=== PATIENT | female | born 1960 | race African-American/Black ===

== ENCOUNTER 2016-11-28 11:21 | Day surgery (SDC) | payer BC ==
[~2016-11-28 11:21] MED LIST: DIPHENHYDRAMINE HCL 50 MG/ML VIAL ONE; EPINEPHRINE INJ 1 MG/10 ML DISP.SYRIN ONE; FLUMAZENIL INJ 0.5 MG/5 ML VIAL ONE; GLUCAGON,HUMAN RECOMB 1 MG INJ ONE; NALOXONE HCL INJ/PF 0.4 MG/1 ML SDV ONE; ONDANSETRON HCL INJ/PF 4 MG/2 ML SDV ONE
[2016-11-28] MEDS: MIDAZOLAM 2 MG/2 ML INJ ONE ×3 (12:17→12:28)
[2016-11-28] MEDS: FENTANYL CITRATE INJ/PF 100 MCG/2 ML AMPUL ONE ×2 (12:19→12:26)
--- NOTE | 2016-11-28 12:59 | Operative Report ---
Operative Report DATE OF SURGERY: 11/28/16 Operative Report: The risks, benefits and alternatives of the procedure including risks of bleeding, perforation requiring surgery are explained to the patient in detail and informed consent was obtained. Patient is taken back to the endoscopy suite and placed in the left, lateral decubital position. Timeout was called and conscious sedation medications are provided. A rectal examination is done which did not reveal any masses, tears or fissures. An Olympus scope was inserted patient's rectum. It is carefully guided all the way to the cecum. The cecum was identified by the usual anatomical landmarks including the valve as well as the appendiceal orifice. Photodocumentation was obtained. The prep was good. The scope was then sequentially pulled back via the various segments of the colon including the ascending colon, hepatic flexure , transverse colon, splenic flexure, descending colon confined to the rectosigmoid portions of the colon. Retroflexion maneuver was performed. PREOPERATIVE DIAGNOSIS: Colorectal cancer screening POSTOPERATIVE DIAGNOSIS: Diminutive rectal polyp status post biopsy OPERATION: Colonoscopy with biopsy SURGEON: JYOTI ABBOTT ANESTHESIA: Moderate Sedation - 6 mg of Versed, 100 mcg of fentanyl. Conscious sedation monitoring time 30 minutes. TISSUE REMOVED OR ALTERED: As noted above. COMPLICATIONS: None. ESTIMATED BLOOD LOSS: None. INTRAOPERATIVE FINDINGS: As noted above. PROCEDURE: Patient tolerated procedure well. No immediate postprocedure complications are noted. Patient discharged in good condition. Discharge date 11/28/2016. Discharge diet: Regular. Discharge activity: Regular. 2-3 week follow-up to discuss findings. 5 year surveillance colonoscopy. Patient is instructed to call the office or proceed to the emergency room should there be any further problems or questions.
[2016-11-28 13:39] VITALS: BP 129/78
== END 2016-11-28 13:45 | disposition home or self-care (01) ==
LOC: END 11:21
PROVIDERS: ATTEND Internal Medicine Gastroenterology
PROC: 0DBP8ZX Excision of Rectum, Via Natural or Artificial Opening Endoscopic, Diagnostic (ICD-10-PCS; principal; 2016-11-28 12:00)
DX: Z12.11 Encounter for screening for malignant neoplasm of colon (principal); K62.1 Rectal polyp; K21.9 Gastro-esophageal reflux disease without esophagitis; I10 Essential (primary) hypertension; E11.9 Type 2 diabetes mellitus without complications; M19.90 Unspecified osteoarthritis, unspecified site; Z79.899 Other long term (current) drug therapy; Z88.6 Allergy status to analgesic agent; Z79.84 Long term (current) use of oral hypoglycemic drugs
CPT/HCPCS: 45380; 82962; 88305 ×2; J2250; J3010; J0171; J1200; J1610; J2310; J2405; J3490

== ENCOUNTER → 2016-12-01 | Outpatient (CLI) | payer BC ==
--- NOTE | 2016-12-01 18:23 | WOMENS IMAGING REPORT ---
EXAM DESCRIPTION: 3D SCREENING MAMMO BILAT COMPLETED DATE/TIME: 12/01/2016 9:50 am REASON FOR STUDY: SCREENING MAMMO Z12.31 ENCNTR SCREEN MAMMOGRAM FOR MALIGNANT NEOPLASM OF MARIANO COMPARISON: Multiple since 2009 TECHNIQUE: Standard craniocaudal and mediolateral oblique views of each breast recorded using digita l acquisition and breast tomosynthesis. LIMITATIONS: None. FINDINGS: No masses, calcifications or architectural distortion. No areas of suspicion. Read with the assistance of CAD. .[facility] - R2 Cenova Version 1.3 .[facility] - R2 Cenova Version 1.3 .[facility] - R2 Cenova Version 2.4 .[facility] - R2 Cenova Version 2.4 .[facility] - R2 Environmental [employer] Aide Version 9.2 IMPRESSION: NORMAL MAMMOGRAM. BIRADS 1. BREAST DENSITY: b. There are scattered areas of fibroglandular density. BIRAD: 1 NEGATIVE RECOMMENDATION: ROUTINE SCREENING Please continue yearly bilateral screening tomosynthesis in November 2017 COMMENT: The patient has been notified of the results by letter per MQSA requirements. Additional no tification policies are in place for contacting patient with suspicious or incomplete findings. Quality ID #225: The [employer] recommends an annual screening mammogram for women aged 40 years or over. This facility utilizes a reminder system to ensure that all patients receive reminder letters, and/or direct phone calls for appointments. This includes reminders for routine scr eening mammograms, diagnostic mammograms, or other Breast Imaging Interventions when appropriate. Th is patient will be placed in the appropriate reminder system. The [employer] (ACR) has developed recommendations for screening MRI of the breast s in certain patient populations, to be used in conjunction with mammography. Breast MRI surveillanc e may be appropriate for women with more than 20% lifetime risk of developing breast cancer as deter mined by genetic testing, significant family history of the disease, or history of mantle radiation f or Hodgkins Disease. ACR Practice Guidelines 2008. DBT Technology DBT is a type of tomographic mammography. With conventional mammography, overlapping breast tissue ma y make lesions difficult to detect, even with good compression. DBT uses an x-ray tube that rotates a round the breast, taking images at different angles. These images are then combined to create thin sl ices of the breast that the radiologist can view as a 3D reconstruction. The [employer] unit can perform full-field digital mammograms (2D imaging); or DBT (3D imaging); or both, in a combination mode that quickly performs both the mammogram and the tomosynthesis scan while the breast is still compressed. PQRS 6045F: Fluoroscopic imaging is not utilized for breast tomosynthesis. TECHNICAL DOCUMENTATION: FINDING NUMBER: (1) ASSESSMENT: (1) JOB ID: [id number] [employer]- All Rights Reserved
== END ==
LOC: WI 09:22
PROVIDERS: ATTEND Physician Assistant
DX: Z12.31 Encounter for screening mammogram for malignant neoplasm of breast (principal)
CPT/HCPCS: 77063; G0202; 77067

== ENCOUNTER 2017-06-18 12:15 | Emergency (ER) | payer BC ==
--- NOTE | 2017-06-18 13:26 | ER Document Report ---
ED Medical Screen (RME) - General Chief Complaint: Headache Stated Complaint: RIGHT SIDE PAIN Time Seen by Provider: 06/18/17 13:24 Notes: has had right sided numbness for over a month. told by pmd that was neruopathy. yesterday noticed right arm/leg swelling and face swelling today. Pt feels sob TRAVEL OUTSIDE OF THE [place]. IN LAST 30 DAYS: No - Related Data Allergies/Adverse Reactions: aspirin [Aspirin] Allergy (Severe, Verified 06/18/17 12:16) Passed out Past Medical History - Past Medical History Cardiac Medical History: Reports: Hx Hypertension Denies: Hx Coronary Artery Disease, Hx Heart Attack Pulmonary Medical History: Denies: Hx Asthma, Hx Bronchitis, Hx COPD, Hx Pneumonia Neurological Medical History: Denies: Hx Cerebrovascular Accident, Hx Seizures Endocrine Medical History: Reports: Hx Diabetes Mellitus Type 2 Musculoskeltal Medical History: Reports Hx Arthritis - B/L knees Past Surgical History: Denies: Hx Hysterectomy - Immunizations Hx Diphtheria, Pertussis, Tetanus Vaccination: Yes Physical Exam - Vital signs Vitals: Temp Pulse Resp BP Pulse Ox 97.9 F 61 16 156/87 H 98 06/18/17 12:42 06/18/17 12:42 06/18/17 12:42 06/18/17 12:42 06/18/17 12:42 Course - Vital Signs Vital signs: Temp Pulse Resp BP Pulse Ox 97.9 F 61 16 156/87 H 98 06/18/17 12:42 06/18/17 12:42 06/18/17 12:42 06/18/17 12:42 06/18/17 12:42
--- NOTE | 2017-06-18 14:08 | RADIOLOGY REPORT (SQ) ---
EXAM DESCRIPTION: CT HEAD WITHOUT COMPLETED DATE/TIME: 06/18/2017 1:54 pm REASON FOR STUDY: right sided numbness COMPARISON: None. TECHNIQUE: Axial images acquired through the brain without intravenous contrast. Images reviewed wi th bone, brain and subdural windows. Images stored on PACS. All CT scanners at this facility use dose modulation, iterative reconstruction, and/or weight based d osing when appropriate to reduce radiation dose to as low as reasonably achievable (ALARA). [facility]: Dose Right [facility]: CareDose [facility]: Dose Right [facility]: Teradose 4D [facility]: DataMentors RADIATION DOSE: CT Rad equipment meets quality standard of care and radiation dose reduction techniq ues were employed. CTDIvol: 64.6 mGy. DLP: 1163 mGy-cm. mGy. LIMITATIONS: None. FINDINGS: VENTRICLES: Normal size and contour. CEREBRUM: No masses. No hemorrhage. No midline shift. No evidence for acute infarction. Normal gra y/white matter differentiation. No areas of low density in the white matter. CEREBELLUM: No masses. No hemorrhage. No alteration of density. No evidence for acute infarction. EXTRAAXIAL SPACES: No fluid collections. No masses. ORBITS AND GLOBE: No intra- or extraconal masses. Normal contour of globe without masses. CALVARIUM: No fracture. PARANASAL SINUSES: No fluid or mucosal thickening. SOFT TISSUES: No mass or hematoma. OTHER: No other significant finding. IMPRESSION: NORMAL BRAIN CT WITHOUT CONTRAST. EVIDENCE OF ACUTE STROKE: NO. COMMENT: Quality ID # [id number]: Final reports with documentation of one or more dose reduction techniques (e.g., Automated exposure control, adjustment of the mA and/or kV according to patient size, use of iterative reconstruction technique) TECHNICAL DOCUMENTATION: JOB ID: [id number] [facility]- All Rights Reserved Reading location - IP/workstation name: [email or web address]
--- NOTE | 2017-06-18 14:16 | EKG REPORT ---
SEVERITY:- ABNORMAL ECG - SINUS RHYTHM FIRST DEGREE AV BLOCK BORDERLINE LEFT AXIS DEVIATION : Confirmed by: Hao Garcia MD 18-Jun-2017 14:15:58
[2017-06-18 14:17] LABS: ABSOLUTE BASOPHILS # (AUTO) 0.1 10^3/uL (0.0-0.2); ABSOLUTE EOSINOPHILS # (AUTO) 0.4 10^3/uL (0.0-0.6); ABSOLUTE LYMPHOCYTES (AUTO) 3.2 10^3/uL (0.5-4.7); ABSOLUTE MONOCYTES (AUTO) 0.5 10^3/uL (0.1-1.4); ABSOLUTE NEUT (AUTO) 3.1 10^3/uL (1.7-8.2); EOSINOPHILS % (AUTO) 5.2 % (0-6); HEMATOCRIT 41.8 % (36.0-47.0); HEMOGLOBIN 13.6 g/dL (12.0-15.5); LYMPHOCYTES % (AUTO) 43.9 % (13-45); MEAN CORPUSCULAR HEMOGLOBIN 28.3 pg (27.0-33.4); MEAN CORPUSCULAR HGB CONC 32.5 g/dL (32.0-36.0); MEAN CORPUSCULAR VOLUME 87 fl (80-97); MONOCYTES % (AUTO) 6.9 % (3-13); PLATELET COUNT 315 10^3/uL (150-450); RED BLOOD COUNT 4.82 10^6/uL (3.72-5.28); RED CELL DISTRIBUTION WIDTH 14.1 % (11.5-14.0); TOTAL CELLS COUNTED % (AUTO) 100 %; WHITE BLOOD COUNT 7.2 10^3/uL (4.0-10.5)
[2017-06-18 14:39] LABS: ALANINE AMINOTRANSFERASE 30 U/L (9-52); ALBUMIN 4.5 g/dL (3.5-5.0); ALKALINE PHOSPHATASE 75 U/L (38-126); ANION GAP 8 (5-19); ASPARTATE AMINO TRANSFERASE 20 U/L (14-36); BILIRUBIN,DIRECT 0.1 mg/dL (0.0-0.4); BILIRUBIN,TOTAL 0.6 mg/dL (0.2-1.3); BLOOD UREA NITROGEN 17 mg/dL (7-20); CALCIUM 10.3 mg/dL (8.4-10.2); CARBON DIOXIDE 33 mmol/L (22-30); CHLORIDE 101 mmol/L (98-107); GLUCOSE 87 mg/dL (75-110); POTASSIUM 4.2 mmol/L (3.6-5.0); SODIUM 142.1 mmol/L (137-145); TOTAL PROTEIN 7.3 g/dL (6.3-8.2)
--- NOTE | 2017-06-18 15:35 | ER Document Report ---
ED Neuro Symptoms/Deficit - General Mode of Arrival: Ambulatory Information source: Patient TRAVEL OUTSIDE OF THE U.S. IN LAST 30 DAYS: No <MARY VALENTE - Last Filed: 06/18/17 16:39> <CASS SILVERMAN - Last Filed: 06/21/17 09:28> - General Chief Complaint: Headache Stated Complaint: RIGHT SIDE PAIN Time Seen by Provider: 06/18/17 13:24 Notes: Patient is a 56-year-old female who presents to the emergency department today with multiple complaints. Patient complains of subjective right arm swelling which she states has been present for well over one year. Patient states she has had an ultrasound of her right upper extremity in the past which was negative for DVT. Patient states she has also had intermittent associated tingling and pain in her right upper extremity as well. 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 Patient states yesterday while at work she developed a numbness from her "neck on down to her fingers" of her RUE which is new for her. Patient states after noticing that she noticed subjective swelling of her right lower extremity without numbness. Patient states she developed a headache, lightheadedness, and shortness of breath as well yesterday. Patient denies any vision changes or history of CVA. Dr. vuong called to give an expect on the patient and requested that an MRI/MRA be performed to rule out CVA (MARY VALENTE) - Related Data Allergies/Adverse Reactions: aspirin [Aspirin] Allergy (Severe, Verified 06/18/17 12:16) Passed out Past Medical History - General Information source: Patient - Social History Smoking Status: Unknown if Ever Smoked Cigarette use (# per day): No Frequency of alcohol use: None Drug Abuse: None Lives with: Family Family History: Reviewed & Not Pertinent, CAD - Father with DE in 60s - Past Medical History Cardiac Medical History: Reports: Hx Hypertension Endocrine Medical History: Reports: Hx Diabetes Mellitus Type 2 Musculoskeltal Medical History: Reports Hx Arthritis - B/L knees Surgical Hx: Negative - Immunizations Hx Diphtheria, Pertussis, Tetanus Vaccination: Yes <MARY VALENTE - Last Filed: 06/18/17 16:39> Review of Systems - Review of Systems Constitutional: No symptoms reported EENT: denies: Blurred vision, Double vision Cardiovascular: See HPI, Dizziness, Lightheaded Respiratory: See HPI, Short of breath Gastrointestinal: No symptoms reported Genitourinary: No symptoms reported Female Genitourinary: No symptoms reported Musculoskeletal: See HPI, Other - subjective RLE and RUE swelling, numbness, pain Skin: No symptoms reported Hematologic/Lymphatic: No symptoms reported Neurological/Psychological: See HPI, Headaches -: Yes All other systems reviewed and negative <MARY VALENTE - Last Filed: 06/18/17 16:39> Physical Exam <MARY VALENTE - Last Filed: 06/18/17 16:39> <HERRERACASS - Last Filed: 06/21/17 09:28> - Vital signs Vitals: Temp Pulse Resp BP Pulse Ox 97.9 F 61 16 156/87 H 98 06/18/17 12:42 06/18/17 12:42 06/18/17 12:42 06/18/17 12:42 06/18/17 12:42 - Notes Notes: Physical Exam: General: Alert, obese, appears well. HEENT: Normocephalic. Atraumatic. PERRL. Extraocular movements intact. Oropharynx clear. Neck: Supple. Non-tender. Respiratory: No respiratory distress. Clear and equal breath sounds bilaterally. Cardiovascular: Regular rate and rhythm. Abdominal: Normal Inspection. Non-tender. No distension. Normal Bowel Sounds. Back: Non-tender. No deformity or step off. Extremities: Moves all four extremities. Upper extremities: Normal inspection. Normal ROM. No difference in extremity size despite patient stating right arm is swollen. Lower extremities: Normal inspection. No edema. Normal ROM. No difference in extremity size despite patient stating right leg is swollen. Neurological: Normal cognition. AAOx4. Normal speech. Cranial nerves II through XII grossly intact bilaterally. No pronator drift. Finger to nose test and rapid alternating movements intact bilaterally. Complains of subjective "heaviness" when lifting her right lower extremity. Equal natural resources specialist strength bilaterally. Psychological: Normal affect. Normal Mood. Skin: Warm. Dry. Normal color. (MARY VALENTE) Course - Laboratory Result Diagrams: 06/18/17 14:00 06/18/17 14:00 <MARY VALENTE - Last Filed: 06/18/17 16:39> - Laboratory Result Diagrams: 06/18/17 14:00 06/18/17 14:00 <CASS SILVERMAN - Last Filed: 06/21/17 09:28> - Re-evaluation Re-evalutation: 06/18/17 20:07 MRI/MRA brain shows no acute abnormalities no signs of stroke. Discussed case with Dr. Vuong who advised to have patient follow-up in his office tomorrow. MRA Neck pending, but concern of stroke has been ruled out. Patient will follow up with Dr. Vuong tomorrow (CASS SILVERMAN) - Vital Signs Vital signs: Temp Pulse Resp BP Pulse Ox 97.8 F 63 16 131/88 H 99 06/18/17 20:22 06/18/17 20:22 06/18/17 20:22 06/18/17 20:22 06/18/17 20:22 - Laboratory Laboratory results interpreted by me: 06/18/17 06/18/17 14:00 14:00 RDW 14.1 H Carbon Dioxide 33 H Calcium 10.3 H Discharge <MARY VALENTE - Last Filed: 06/18/17 16:39> <CASS SILVERMAN - Last Filed: 06/21/17 09:28> - Discharge Clinical Impression: Tingling and heaviness of RUE/RLE Condition: Good Disposition: HOME, SELF-CARE Additional Instructions: Please follow-up with your previously scheduled appointment with Dr. Vuong tomorrow for further evaluation. Referrals: TIMMY VUONG MD [Primary Care Provider] - Follow up as needed Scribe Attestation: 06/21/17 09:28 I personally performed the services described in the documentation, reviewed and edited the documentation which was dictated to the scribe in my presence, and it accurately records my words and actions. (CASS SILVERMAN) Scribe Documentation - Scribe Written by Bluee:: Refugio Gandhi, 06/18/2017 [id number] acting as scribe for :: Herrera <MARY VALENTE - Last Filed: 06/18/17 16:39>
--- NOTE | 2017-06-18 19:20 | RADIOLOGY REPORT (SQ) ---
EXAM DESCRIPTION: MRI HEAD WITHOUT COMPLETED DATE/TIME: 06/18/2017 7:08 pm REASON FOR STUDY: RUE/RLE tingling, heaviness COMPARISON: None. TECHNIQUE: Multiplanar imaging includes non-contrasted T1, T2, FLAIR, and diffusion with ADC map seq uences. Images stored on PACS. LIMITATIONS: None. FINDINGS: ANATOMY: No anomalies. Normal vascular flow voids. Pituitary fossa normal. CSF SPACES: Normal in size and contour. No hemorrhage. CEREBRUM: Sulci and gyri normal in size and contour. Normal white matter signal on FLAIR imaging. No evidence of hemorrhage, mass, or extraaxial fluid collection. POSTERIOR FOSSA: No signal alteration. No hemorrhage. No edema, masses or mass effect. Internal giancarlo tory canals, cerebello-pontine angles, mastoids normal. DIFFUSION IMAGING: Negative for acute or sub-acute infarction. ORBITS: No masses. Globes normal. PARANASAL SINUSES: No fluid levels. Mucosa normal. OTHER: No other significant finding. IMPRESSION: NORMAL MRI OF THE BRAIN WITHOUT INTRAVENOUS GADOLINIUM CONTRAST. EVIDENCE OF ACUTE STROKE: No TECHNICAL DOCUMENTATION: JOB ID: [id number]- All Rights Reserved Reading location - IP/workstation name: [email or web address]
--- NOTE | 2017-06-18 19:31 | RADIOLOGY REPORT (SQ) ---
EXAM DESCRIPTION: MRA HEAD WITHOUT COMPLETED DATE/TIME: 06/18/2017 7:08 pm REASON FOR STUDY: RUE/RLE tingling, heaviness COMPARISON: None. TECHNIQUE: Axial 3-D lxot-of-zsaqng acquisition imaging performed through the brain in the area of t he [place]. Images reformatted using 3-D MIPS. LIMITATIONS: None. FINDINGS: SOURCE IMAGES: No unexpected findings on source images. No large masses. 3-D MIP: No aneurysm. No occlusions. No significant stenosis. OTHER: No other significant finding. IMPRESSION: NORMAL MRA OF THE [place]. TECHNICAL DOCUMENTATION: JOB ID: [id number] [employer]- All Rights Reserved Reading location - IP/workstation name: [email or web address]
[2017-06-18 20:26] VITALS: BP 131/88
--- NOTE | 2017-06-18 20:38 | RADIOLOGY REPORT (SQ) ---
EXAM DESCRIPTION: MRA NECK COMBO COMPLETED DATE/TIME: 06/18/2017 8:01 pm REASON FOR STUDY: RUE/RLE tingling, heaviness COMPARISON: None. TECHNIQUE: MRA of the carotid and vertebral arteries was performed using 2D and 3D uylq-ui-inyfdb te chniques without and with the use of gadolinium. 3-D MIPs performed at the workstation and stored on PACS. CONTRAST TYPE AND DOSE: 20 cc mL Multihance. RENAL FUNCTION: Creatinine 0.7 GFR greater than 60 LIMITATIONS: None. FINDINGS: GREAT VESSEL ORIGINS: Normal. No stenoses. VERTEBRAL ARTERIES: No stenoses. No evidence for aneurysm or dissection. RIGHT CAROTID SYSTEM: No significant stenosis. LEFT CAROTID SYSTEM: No significant stenosis. OTHER: No other significant finding. IMPRESSION: NORMAL MRA OF THE CAROTIDS WITH AND WITHOUT CONTRAST. COMMENT: Quality ID #[id number]: Measurements of distal internal carotid diameter were used as the denomina tor for stenosis measurement. TECHNICAL DOCUMENTATION: JOB ID: [id number] [employer]- All Rights Reserved Reading location - IP/workstation name: [email or web address]
== END 2017-06-18 20:28 | disposition home or self-care (01) ==
LOC: ER 12:15
DX: R20.0 Anesthesia of skin (principal); R51 Headache; R42 Dizziness and giddiness; R06.02 Shortness of breath; X50.0XXA Overexertion from strenuous movement or load, initial encounter; Y92.89 Other specified places as the place of occurrence of the external cause; Y99.0 Civilian activity done for income or pay; I10 Essential (primary) hypertension; E11.9 Type 2 diabetes mellitus without complications
CPT/HCPCS: 36415; 70450; 70544; 70549; 70551; 80053; 85025; 93005; 93010; 99284

== ENCOUNTER → 2017-06-26 | Outpatient (CLI) | payer BC ==
--- NOTE | 2017-06-26 10:01 | RADIOLOGY REPORT (SQ) ---
EXAM DESCRIPTION: MRI CERVICAL SPINE WITHOUT COMPLETED DATE/TIME: 06/26/2017 9:06 am REASON FOR STUDY: NEURALGIA M79.2 NEURALGIA AND NEURITIS, UNSPECIFIED COMPARISON: None. TECHNIQUE: Sagittal and Axial imaging includes T1, T2, STIR and gradient echo sequences. LIMITATIONS: None. FINDINGS: ALIGNMENT: Reversal normal cervical lordotic curve. VERTEBRAE: Intact. BONE MARROW: Reactive endplate changes C4-5, C5-6. DISCS: Mild loss of height and T2 signal C4-5 and C5-6. HARDWARE: None in the spine. CORD AND BASE OF BRAIN: Normal in size and signal intensity. SOFT TISSUES: No soft tissue masses. C1-C2: No significant spinal stenosis. C2-C3: No significant spinal stenosis or exit foraminal stenosis. C3-C4: No significant spinal stenosis or exit foraminal stenosis. C4-C5: Disc osteophyte complex asymmetric left with moderate narrowing of the left exit foramina. C5-C6: Disc osteophyte complex asymmetric left. Flattening of the anterior thecal sac. Moderate rashel rowing of the left exit foramina. C6-C7: Disc osteophyte complex asymmetric left with mild narrowing of left exit foramina. C7-T1: No significant spinal stenosis or exit foraminal stenosis. UPPER THORACIC: Incompletely imaged. No significant spinal stenosis or exit foraminal stenosis. OTHER: No other significant finding. IMPRESSION: Spondylosis. See C5-6 with milder moderate spinal stenosis and left exit foraminal sten osis. Narrowing of the left exit foramina C4-5 and C6-7. TECHNICAL DOCUMENTATION: JOB ID: [id number] [employer]- All Rights Reserved Reading location - IP/workstation name: [email or web address]
== END ==
LOC: RAD 08:33
PROVIDERS: ATTEND Physician Assistant
DX: M79.2 Neuralgia and neuritis, unspecified (principal); M47.892 Other spondylosis, cervical region
CPT/HCPCS: 72141

== ENCOUNTER → 2017-07-18 | Outpatient (CLI) | payer BC | LOC: OD 12:53 | PROVIDERS: ATTEND Family Medicine | DX: M25.50 Pain in unspecified joint (principal) | CPT/HCPCS: 36415; 85652; 86038; 86140; 86430; 86592 ==

== ENCOUNTER → 2018-09-11 | Outpatient (CLI) | payer BC ==
--- NOTE | 2018-09-11 11:07 | WOMENS IMAGING REPORT ---
EXAM DESCRIPTION: 3D SCREENING MAMMO BILAT COMPLETED DATE/TIME: 09/11/2018 10:11 am REASON FOR STUDY: Z12.31 ROUTINE 3D BILATERAL SCREENING Z12.31 ENCNTR SCREEN MAMMOGRAM FOR MALIGNAN T NEOPLASM OF MARIANO COMPARISON: [id number] EXAM PARAMETERS: Views: Standard craniocaudal and mediolateral oblique views of each breast recorded using digital acquisition and breast tomosynthesis. Read with the assistance of CAD. .[facility] - [employer] Version 9.2 LIMITATIONS: None. FINDINGS: No suspicious masses, suspicious calcifications or architectural distortion. No areas of c oncern. IMPRESSION: NEGATIVE MAMMOGRAM. BIRADS 1. BREAST DENSITY: b. There are scattered areas of fibroglandular density. BIRAD: ASSESSMENT: 1 NEGATIVE RECOMMENDATION: ROUTINE SCREENING COMMENT: The patient has been notified of the results by letter per MQSA requirements. Additional no tification policies are in place for contacting patient with suspicious or incomplete findings. Quality ID #225: The [employer] recommends an annual screening mammogram for women aged 40 years or over. This facility utilizes a reminder system to ensure that all patients receive reminder letters, and/or direct phone calls for appointments. This includes reminders for routine scr eening mammograms, diagnostic mammograms, or other Breast Imaging Interventions when appropriate. Th is patient will be placed in the appropriate reminder system. TECHNICAL DOCUMENTATION: FINDING NUMBER: (1) ASSESSMENT: (1) JOB ID: [id number] [employer]- All Rights Reserved Reading location - IP/workstation name: [email or web address]
== END ==
LOC: WI 09:28
PROVIDERS: ATTEND Physician Assistant
DX: Z12.31 Encounter for screening mammogram for malignant neoplasm of breast (principal)
CPT/HCPCS: 77063; 77067

== ENCOUNTER → 2019-09-15 | Outpatient (CLI) | payer BC ==
--- NOTE | 2019-09-15 17:19 | WOMENS IMAGING REPORT ---
EXAM DESCRIPTION: 3D SCREENING MAMMO BILAT IMAGES COMPLETED DATE/TIME: 09/15/2019 2:30 pm REASON FOR STUDY: Z12.31 ENCOUNTER FOR SCREENING MAMMOGRAM FOR MALIGNANT NEOPLASM OF BREAST Z12.39 ENCOUNTER FOR OTH SCREENING FOR MALIGNANT NEOPLASM OF COMPARISON: 09/11/2018, 12/01/2016, 12/01/2015 EXAM PARAMETERS: Views: Standard craniocaudal and mediolateral oblique views of each breast recorded using digital acquisition and breast tomosynthesis. . Read with the assistance of CAD. .[facility] - [employer] Vacuum Tester Version 9.2 LIMITATIONS: None. FINDINGS: No suspicious masses, suspicious calcifications or architectural distortion. No areas of c oncern. IMPRESSION: NEGATIVE MAMMOGRAM. BIRADS 1. BREAST DENSITY: b. There are scattered areas of fibroglandular density. BIRAD: ASSESSMENT: 1 NEGATIVE RECOMMENDATION: ROUTINE SCREENING COMMENT: The patient has been notified of the results by letter per MQSA requirements. Additional no tification policies are in place for contacting patient with suspicious or incomplete findings. Quality ID #225: The [employer] recommends an annual screening mammogram for women aged 40 years or over. This facility utilizes a reminder system to ensure that all patients receive reminder letters, and/or direct phone calls for appointments. This includes reminders for routine scr eening mammograms, diagnostic mammograms, or other Breast Imaging Interventions when appropriate. Th is patient will be placed in the appropriate reminder system. TECHNICAL DOCUMENTATION: FINDING NUMBER: (1) ASSESSMENT: (1) JOB ID: [id number] [employer]- All Rights Reserved Reading location - IP/workstation name: [email or web address]
== END ==
LOC: WI 14:03
PROVIDERS: ATTEND Physician Assistant
DX: Z12.31 Encounter for screening mammogram for malignant neoplasm of breast (principal)
CPT/HCPCS: 77063; 77067

== ENCOUNTER 2019-12-16 17:28 | Emergency (ER) | payer BC ==
[2019-12-16 17:42] VITALS: BP 161/87
--- NOTE | 2019-12-16 18:40 | ER Document Report ---
HPI - HPI Time Seen by Provider: 12/16/19 18:26 Notes: 59-year-old female presents emergency room with a rupture of her left leg varicose vein that spontaneously happened around 5:00 this afternoon. Patient does not have any clotting disorders, denies any trauma to the area. Patient reports that the vein is still bleeding. Has not applied any direct pressure. Patient denies any bleeding disorders, is does not take a baby aspirin. Denies accidentally hitting her leg against something. No trauma. Denies fevers, chills, chest pain,palpitations, shortness of breath, dyspnea, nausea, vomiting, diarrhea, abdominal pain, hematuria,blurred vision, double vision, loss of vision, speech changes, LH, dizziness, syncope, headaches, wheezing, ST, URI, neck pain, weakness, bowel or bladder dysfunction, saddle anesthesia, numbness or tingling in bilateral upper or lower extremities equally, muscle paralysis, weakness in bilateral upper or lower extremities equally or rash. Denies IV drug use. MEDICATIONS: I agree with the patient medications as charted by the RN. ALLERGIES: I agree with the allergies as charted by the RN. PAST MEDICAL HISTORY/PAST SURGICAL HISTORY: Reviewed and agree as charted by RN. SOCIAL HISTORY: Reviewed and agree as charted by RN. FAMILY HISTORY: No significant familial comorbid conditions directly related to patient complaint EXAM: Reviewed vital signs as charted by RN. REVIEW OF SYSTEMS:reviewed vital signs by RN CONSTITUTIONAL : Denies fever, chills, or sweats. Denies recent illness. EENT: Denies eye, ear, throat, or mouth pain or symptoms. Denies nasal or sinus congestion or discharge. Denies throat, tongue, or mouth swelling or d ifficulty swallowing. CARDIOVASCULAR: Denies chest pain. Denies palpitations or racing or irregular heart beat. Denies ankle edema. RESPIRATORY: Denies cough, cold, or chest congestion. Denies shortness of breath, difficulty breathing, or wheezing. GASTROINTESTINAL: Denies abdominal pain or distention. Denies nausea, vomiting, or diarrhea. Denies blood in vomitus, stools, or per rectum. Denies black, tarry stools. Denies constipation. GENITOURINARY: Denies difficulty urinating, painful urination, burning, frequency, blood in urine, or discharge. FEMALE GENITOURINARY: Denies vaginal bleeding, heavy or abnormal periods, irregular periods. Denies vaginal discharge or odor. MUSCULOSKELETAL: Denies back or neck pain or stiffness. Denies joint pain or swelling. SKIN: Denies rash, lesions or sores. HEMATOLOGIC : Denies easy bruising or bleeding. Reports bleeding to her left upper thigh of her varicose vein LYMPHATIC: Denies swollen, enlarged glands. NEUROLOGICAL: Denies confusion or altered mental status. Denies passing out or loss of consciousness. Denies dizziness or lightheadedness. Denies headache. Denies weakness or paralysis or loss of use of either side. Denies problems with gait or speech. Denies sensory loss, numbness, or tingling. Denies seizures. PSYCHIATRIC: Denies anxiety or stress. Denies depression, suicidal ideation, or homicidal ideation. ALL OTHER SYSTEMS REVIEWED AND NEGATIVE. PHYSICAL EXAMINATION: GENERAL: Well-appearing, well-nourished and in no acute distress. HEAD: Atraumatic, normocephalic. EYES: Pupils equal round and reactive to light, extraocular movements intact, conjunctiva are normal. ENT: Nares patent, oropharynx clear without exudates. Moist mucous membranes. NECK: Normal range of motion, supple without lymphadenopathy LUNGS: Breath sounds clear to auscultation bilaterally and equal. No wheezes rales or rhonchi. HEART: Regular rate and rhythm without murmurs ABDOMEN: Soft, nontender, nondistended abdomen. No guarding, no rebound. No masses appreciated. Female : deferred Musculoskeletal: Normal range of motion, no pitting or edema. No cyanosis. NEUROLOGICAL: Cranial nerves grossly intact. Normal speech, normal gait. Normal sensory, motor exams PSYCH: Normal mood, normal affect. SKIN: Warm, Dry, normal turgor, no rashes or lesions noted. Left upper anterior thigh with varicose vein bundle that has a small venous bleed. Distal pulses +2 bilaterally and equally. Applied direct pressure for 2 minutes and bleeding stopped. Negative Homans test bilaterally. No tenderness, erythema, induration around varicose veins to left anterior thigh Dictation was performed using [employer] voice recognition software - REPRODUCTIVE Reproductive: DENIES: : Past Medical History - General Information source: Patient - Social History Smoking Status: Unknown if Ever Smoked Family History: Reviewed & Not Pertinent, CAD - Father with KS in 60s - Past Medical History Cardiac Medical History: Reports: Hx Hypertension Denies: Hx Coronary Artery Disease, Hx Heart Attack Pulmonary Medical History: Denies: Hx Asthma, Hx Bronchitis, Hx COPD, Hx Pneumonia Neurological Medical History: Denies: Hx Cerebrovascular Accident, Hx Seizures Endocrine Medical History: Reports: Hx Diabetes Mellitus Type 2 Renal/ Medical History: Denies: Hx Peritoneal Dialysis Musculoskeletal Medical History: Reports Hx Arthritis - B/L knees Past Surgical History: Denies: Hx Hysterectomy - Immunizations Hx Diphtheria, Pertussis, Tetanus Vaccination: Yes Vertical Provider Document - CONSTITUTIONAL Agree With Documented VS: Yes Exam Limitations: No Limitations General Appearance: WD/WN - INFECTION CONTROL TRAVEL OUTSIDE OF THE [place] IN LAST 30 DAYS: No Course - Re-evaluation Re-evalutation: 12/16/19 18:37 Afebrile vital stable no distress. Nurses notes reviewed. After applying direct pressure to varicose vein, bleeding had stopped and states stopped. Patient states she had not applied any direct pressure to her varicose vein. Patient was concerned because she is going out of town a couple of days and she just wanted to make sure everything was okay. Denies any clotting disorders, bleeding disorders, being on any anticoagulants or blood thinners. Discussed with patient how to care for varicose vein. Advised to follow-up with primary care provider within the next 24 to 48 hours to return the emergency room if bleeding starts again is unable to stop after applying direct pressure. Avoid any anti-inflammatories or aspirins for the next 1 to 2 days. Avoid scrubbing her skin when she showers in that particular area. And when the scab forms do not pick it off. After performing a Medical Screening Examination, I estimate there is LOW risk for OPEN FRACTURE, COMPARTMENT SYNDROME, TENDON RUPTURE, ACUTE NEUROVASCULAR INJURY, or RETAINED FOREIGN BODY, thus I consider the discharge disposition reasonable. Also, there is no evidence or peritonitis, sepsis, or toxicity. I have reevaluated this patient multiple times and no significant life threatening changes are noted. The patient and I have discussed the diagnosis and risks, and we agree with discharging home with close follow-up with the understanding that symptoms and presentations can change. We also discussed returning to the Emergency Department immediately if new or worsening symptoms occur. We have discussed the symptoms which are most concerning (e.g., changing or worsening pain, fever, numbness, weakness, cool or painful digits) that necessitate immediate return. - Vital Signs Vital signs: Temp Pulse Resp BP Pulse Ox 98.7 F 82 20 161/87 H 98 12/16/19 17:41 12/16/19 17:41 12/16/19 17:41 12/16/19 17:41 12/16/19 17:41 Discharge - Discharge Clinical Impression: Bleeding from varicose veins of left lower extremity Condition: Stable Disposition: HOME, SELF-CARE Instructions: Varicose Veins ([facility]) Additional Instructions: Please apply direct pressure to site until bleeding has stopped. If you notice any bleeding restarting please return to the emergency room. Follow-up with your primary care provider in the next 24 to 48 hours as needed. Return immediately for any new or worsening symptoms. Follow up with primary care provider, call tomorrow to make followup appointment. Referrals: CHANEL PITTS NP [Primary Care Provider] - Follow up as needed
== END 2019-12-16 18:45 | disposition home or self-care (01) ==
LOC: ER 17:28
DX: I83.892 Varicose veins of left lower extremity with other complications (principal); I10 Essential (primary) hypertension
CPT/HCPCS: 99282

== ENCOUNTER → 2020-01-08 | Outpatient (CLI) | payer BC ==
--- NOTE | 2020-01-08 11:23 | RADIOLOGY REPORT (SQ) ---
EXAM DESCRIPTION: KNEE LEFT 4 VIEWS IMAGES COMPLETED DATE/TIME: 01/08/2020 10:50 am REASON FOR STUDY: DJD PAIN W/USE INSTAB. COMPARISON: None. NUMBER OF VIEWS: Four views. TECHNIQUE: AP, lateral, and both oblique radiographic images acquired of the left knee. LIMITATIONS: None. FINDINGS: MINERALIZATION: Normal. BONES: No acute fracture or dislocation. No worrisome bone lesions. JOINT: Marginal osteophytes at seen medially and laterally, most prominent in the medial compartment. There are small posterior patellar and trochlear osteophytes. No joint effusion. SOFT TISSUES: No soft tissue swelling. No radio-opaque foreign body. OTHER: No other significant finding. IMPRESSION: Degenerative joint disease most prominent in the medial compartment. TECHNICAL DOCUMENTATION: JOB ID: [id number] 2010 [employer]- All Rights Reserved Reading location - IP/workstation name: [email or web address]
--- NOTE | 2020-01-08 11:24 | RADIOLOGY REPORT (SQ) ---
EXAM DESCRIPTION: KNEE RIGHT 4 VIEWS IMAGES COMPLETED DATE/TIME: 01/08/2020 10:50 am REASON FOR STUDY: DJD PAIN W/USE INSTAB. COMPARISON: None. NUMBER OF VIEWS: Four views. TECHNIQUE: AP, lateral, and both oblique radiographic images acquired of the right knee. LIMITATIONS: None. FINDINGS: MINERALIZATION: Normal. BONES: No acute fracture or dislocation. No worrisome bone lesions. JOINT: Marginal osteophytes are present medially and laterally. There is narrowing of the lateral co mpartment more than medial and the lateral osteophytes are more prominent. Small trochlear osteophyt es. No joint effusion. SOFT TISSUES: No soft tissue swelling. No radio-opaque foreign body. OTHER: No other significant finding. IMPRESSION: Degenerative joint disease most prominent in the lateral compartment. TECHNICAL DOCUMENTATION: JOB ID: [id number] 2010 [employer]- All Rights Reserved Reading location - IP/workstation name: [email or web address]
== END ==
LOC: OD 10:33
PROVIDERS: ATTEND Obstetrics & Gynecology
DX: M17.0 Bilateral primary osteoarthritis of knee (principal); M23.52 Chronic instability of knee, left knee; M23.51 Chronic instability of knee, right knee